=== PATIENT | male | born 1935 | race Caucasian/White ===

== ENCOUNTER 2017-06-15 09:38 | Emergency (ER) | payer MEDICARE ==
--- NOTE | 2017-06-15 10:18 | ERNOTE ---
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 Exam Limitations: no limitations - Immun/Allergies/Home Medications Immunizations: IMMUNIZATION HX Immunizations Up to Date Yes History of Influenza Vaccine Yes Hx Pneumococcal Vaccination Yes Allergies/Adverse Reactions: Allergies No Known Drug Allergies Allergy (Verified 06/15/17 10:04) Home Medications: HOME MEDICATIONS Atenolol [Tenormin] 50 mg PO DAILY 06/15/17 [Last Taken Unknown] Atorvastatin Calcium [Lipitor] 120 mg PO HS 06/15/17 [Last Taken Unknown] Carbidopa/Levodopa [Carbidopa-Levodopa 25-100 Tab] 1 each PO HS 06/15/17 [Last Taken Unknown] Clopidogrel Bisulfate [Plavix] 75 mg PO DAILY 06/15/17 [Last Taken Unknown] Cyanocobalamin [Vitamin B-12] 1,000 mcg PO DAILY 06/15/17 [Last Taken Unknown] Docusate Sodium [Stool Softener] 100 mg PO DAILY 06/15/17 [Last Taken Unknown] Finasteride [Proscar] 5 mg PO DAILY 06/15/17 [Last Taken Unknown] HYDROcodone/ACETAMINOPHEN [[place] 7.5-325 Tablet] 1 each PO TID 06/15/17 [Last Taken Unknown] Pantoprazole Sodium 40 mg PO DAILY 06/15/17 [Last Taken Unknown] Sertraline HCl [Zoloft] 75 mg PO DAILY 06/15/17 [Last Taken Unknown] Terazosin HCl 5 mg PO HS 06/15/17 [Last Taken Unknown] traZODone HCL [Trazodone HCl] 175 mg PO HS 06/15/17 [Last Taken Unknown] - History of Present History Narrative: Here for dizziness for 24 hours, no chest pains, dizziness has been getting worse. Here via private car. Review of Systems - Review of Systems Constitutional: Present: weakness, fatigue EYE: Present: no symptoms reported ENT: Present: no symptoms reported Respiratory: Present: no symptoms reported Cardiology: Present: no symptoms reported Gastrointestinal/Abdominal: Present: no symptoms reported Genitourinary: Present: no symptoms reported Musculoskeletal: Present: no symptoms reported Skin: Present: no symptoms reported Neurological: Present: dizziness/light-headedness - Patient's Past Medical History Patient History - Medical: Anxiety, Depression, GERD, Other Patient History - Cardiac/Respiratory: Hypertension, Hyperlipidemia, Myocardial Infarction, TIA Patient History - Cancer: No Hx of Cancer Patient History - Surgical Procedures: Appendectomy, Coronary Bypass Surgery Patient History - Other: None - Social History Living Situations: home Abuse History: No History of abuse Psych History: Hx of Anxiety, Hx of Depression, Current tx/ever been on anti- depressants or anti-anxiety meds Smoking Status: Former smoker Have you smoked in the past 12 months: No Alcohol Use: none Drug Use: none - Immunizations Immunizations Up to Date: Yes Hx Pneumococcal Vaccination: Yes History of Influenza Vaccine: Yes Physical Exam - Physical Exam General Appearance: Present: wd/wn, alert, no apparent distress Head Exam: Present: normal inspection Respiratory: Present: no respiratory distress, normal breath sounds, no accessory muscle use, chest nontender, lungs clear Cardiovascular/Chest: Present: regular rate, rhythm, bradycardia - Patient appears to be in third degree heart block at this time. ED Progress - Vital Signs Patient's Vital Signs:: I have reviewed the patient's vital signs. Vital Signs: Vital Signs 06/15/17 09:43 Temperature 36.5 C Pulse Rate 89 Respiratory 16 Rate Blood Pressure 119/58 O2 Sat by Pulse 92 Oximetry - EKG EKG: other - Third degree heart block - Progress/Reassessment Chief Complaint: General Assessment Plan - Plan Plan: Patient just presented to ED. His EKG reveals third degree heart block. It is in the patient's best interest NOT to waste noah time and order tests and to get him to a facility which can offer a higher level of appropriate care for him. ANy further testing at our facility WOULD DELAY TRANSFER. Pt is in third degree heart block and may have been so since yesterday when his dizziness became worse. [place] [facility] [place] [facility] [place] and she informs me that "we do not have a butadiene converter helper at this facility today". Dr. Ortiz at [facility] was consulted and she accepted the patient to their ED immediately. Pt will be flown out STAT Departure - Departure Clinical Impression: Third degree heart block Disposition: [facility] Condition: Serious
[2017-06-15 11:36] VITALS: BP 129/41
== END 2017-06-15 10:33 | disposition short-term general hospital (02) ==
LOC: ER 09:38
DX: I44.2 Atrioventricular block, complete (principal); Z87.891 Personal history of nicotine dependence; I10 Essential (primary) hypertension; K21.9 Gastro-esophageal reflux disease without esophagitis; E78.5 Hyperlipidemia, unspecified; F41.9 Anxiety disorder, unspecified; Z86.73 Personal history of transient ischemic attack (TIA), and cerebral infarction without residual deficits